=== PATIENT | male | born 1990 | race Caucasian/White ===

== ENCOUNTER 2024-01-05 08:53 | Emergency (ER) | payer OTHER ==
[~2024-01-05] VITALS: Ht 175.3 cm; Wt 90.7 kg
[2024-01-05 08:57] VITALS: BP 133/91; PULSE 118; RESP 17; TEMP 98.7; O2SAT 98
[2024-01-05] MEDS: NACL 0.9% 1,000 ML IV ONE ×2 (09:39→11:27)
[2024-01-05 09:40] LABS: HEMATOCRIT 43.6 % (36-52); HEMOGLOBIN 13.8 g/dL (12.0-18.0); MEAN CORPUSCULAR HEMOGLOBIN 25 pg (27-31); MEAN CORPUSCULAR HGB CONC 32 g/dL (33-37); MEAN CORPUSCULAR VOLUME 79.6 fL (80-94); PLATELET COUNT (AUTO) 461 K/uL (140-450); RED BLOOD CELL COUNT(AUTO) 5.48 MIL/uL (4.20-6.10); RED CELL DISTRIBUTION WIDTH 24.1 % (11.6-13.7); WHITE BLOOD COUNT (AUTO) 18.3 K/uL (4.8-10.8)
[2024-01-05] MEDS: ONDANSETRON 4 MG/2 ML VIAL IVP ONE (09:41)
[2024-01-05 09:56] LABS: ANION GAP 20.7 (8-16); CREATININE 1.2 mg/dL (0.6-1.3); POTASSIUM 3.7 mmol/L (3.5-5.1)
[2024-01-05 10:00] LABS: LYMPHOCYTES % (MANUAL) 7 % (20-46); MONOCYTES % (MANUAL) 5 % (5-12); PLATELET ESTIMATE ADEQUATE
[2024-01-05 10:01] LABS: INR 1.12 (0.8-1.2); PARTIAL THROMBOPLASTIN TIME 24.1 secs (22-35.6); PROTHROMBIN TIME 11.7 secs (10.8-13.4)
[2024-01-05] MEDS: KETOROLAC 30 MG/ML VIAL IVP ONE (10:02)
[2024-01-05 10:07] LABS: LIPASE 34 U/L (16-77)
[2024-01-05] MEDS: MAGNESIUM OXIDE 400 MG TAB PO ONE (11:27)
[2024-01-05 11:55] LABS: APPEARANCE,URINE CLEAR (CLEAR); BILIRUBIN,URINE NEGATIVE (NEGATIVE); BLOOD, URINE TRACE-I (NEGATIVE); LEUKOCYTE ESTERASE ,URINE NEGATIVE (NEGATIVE); NITRITE, URINE NEGATIVE (NEGATIVE); PROTEIN,URINE 3+ (NEGATIVE); UGLUCOSE NEGATIVE (NEGATIVE); UROBILINOGEN,URINE 0.2 EU/dL (0.2 - 1)
[2024-01-05 11:56] LABS: COLOR,URINE ORANGE (YELLOW)
[2024-01-05 12:05] LABS: AMPHETAMINE, URINE NEGATIVE ng/ml (NEG <=1000); BARBITURATE, URINE NEGATIVE ng/ml (NEG <=200)
[2024-01-05 12:06] LABS: BENZODIAZEPINE, URINE POSITIVE ng/mL (NEG <=200); CANNABINOID, URINE NEGATIVE ng/mL (NEG <=50); COCAINE, URINE NEGATIVE ng/mL (NEG <=300); OPIATE, URINE NEGATIVE ng/mL (NEG <=2000); PHENCYCLIDINE SCREEN,URINE NEGATIVE ng/mL (NEG <=25)
[2024-01-05 12:13] LABS: BACTERIA,URINE FEW /HPF (None Seen); RBC,URINE 0-5 /HPF (0-5); SQUAMOUS EPITHELIAL CELL,UR 0-3 (FEW) /LPF (0-3 (FEW)); WBC,URINE 0-5 /HPF (0-5)
[2024-01-05] MEDS ORDERED: ONDA-188 SL (12:33)
[2024-01-05 12:58] VITALS: BP 130/91; PULSE 93; RESP 20; TEMP 97.8; O2SAT 98
== END 2024-01-05 12:58 | disposition home or self-care (01) ==
LOC: MED 08:53
DX: F10.10 Alcohol abuse, uncomplicated (principal); I10 Essential (primary) hypertension; Z79.1 Long term (current) use of non-steroidal anti-inflammatories (NSAID); Y90.9 Presence of alcohol in blood, level not specified
CPT/HCPCS: 36415; 71045; 74176; 80048; 80305; 81001; 83690; 83735; 83880; 84484; 85025; 85610; 85730; 93005; 96361; 96374; 96375; 99285; J1885; J2405; Q0092; J7030